=== PATIENT | male | born 1980 | race Two or more races ===

== ENCOUNTER 2021-02-17 01:23 | Emergency (ER) | payer SELFPAY ==
[~2021-02-17] VITALS: Ht 170.2 cm; Wt 89.2 kg
[2021-02-17 01:31] VITALS: BP 147/87
[2021-02-17 02:27] LABS: BASOPHILS % (AUTO) 0 % (0-1); EOSINOPHILS % (AUTO) 1 % (1-7); LYMPHOCYTES % (AUTO) 11 % (22-44); MEAN CORPUSCULAR HEMOGLOBIN 30.7 pg (27.5-34.5); MEAN CORPUSCULAR HGB CONC 34.8 g/dL (33.2-36.2); MEAN PLATELET VOLUME 7.7 fL (7.4-10.4); MONOCYTES % (AUTO) 6 % (2-9); NEUTROPHILS % (AUTO) 83 % (42-75); PLATELET COUNT 252 x10^3/uL (130-400); RED BLOOD COUNT 4.96 x10^6/uL (4.38-5.82); RED CELL DISTRIBUTION WIDTH 13.3 % (9.4-14.8)
[2021-02-17 02:37] LABS: ALANINE AMINOTRANSFERASE 43 U/L (12-78); ALBUMIN 3.8 g/dL (3.4-5.0); ANION GAP 5 mmol/L (5-15); CALCIUM 8.7 mg/dL (8.5-10.1); CHLORIDE 107 mmol/L (98-107); CREATININE 0.89 mg/dL (0.7-1.3)
[2021-02-17 02:39] LABS: ALKALINE PHOSPHATASE 76 U/L (45-117); BILIRUBIN,TOTAL 0.6 mg/dL (0.2-1.0); TOTAL PROTEIN 7.4 g/dL (6.4-8.2)
--- NOTE | 2021-02-17 02:42 | NUR ---
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
[2021-02-17 02:47] LABS: MICROSCOPIC INDICATED
--- NOTE | 2021-02-17 04:04 | NUR ---
PT PRESENTS TO ER WITH HIS SISTER AT BEDSIDE FOR BLOOD IN HIS URINE AND PAINFUL URINATION FOR 2 DAYS NOW
--- NOTE | 2021-02-17 04:52 | NUR ---
Penny torrez in [facility] - 02/17/21 at 0452 by SHAYLA ANGELO TO PICK PT UP AT 0600
[2021-02-17] MEDS ORDERED: CEFTRIAXONE 1,000 MG IM ONE (05:30)
[2021-02-17] MEDS ORDERED: CEFTRIAXONE 1,000 MG ONE (05:30)
[2021-02-17] MEDS ORDERED: PHENAZOPYRIDINE 200 MG TABLET PO ONE (05:30)
[2021-02-17] MEDS ORDERED: PHENAZOPYRIDINE 200 MG TABLET ONE (05:30)
[2021-02-17] MEDS ORDERED: DOXYCYCLINE 100MG TABLET PO ONE (05:30)
[2021-02-17] MEDS ORDERED: LIDOCAINE-MPF 1%, 2ML ONE (05:31)
[2021-02-17] MEDS ORDERED: DOXYCYCLINE 100MG TABLET ONE (05:31)
== END 2021-02-17 05:45 | disposition home or self-care (01) ==
LOC: ED 05:39
DX: N30.01 Acute cystitis with hematuria (principal)
CPT/HCPCS: 36415; 74176; 80053; 81001; 85025; 87077; 87086; 87491; 87591; 96372; 99284; J0696; 87186